=== PATIENT | female | born 1970 | race Caucasian/White ===

== ENCOUNTER → 2017-03-25 | Outpatient (CLI) | payer BC ==
[2014-02-13 11:13] VITALS: BP 129/85
--- NOTE | 2017-03-27 14:48 | RAD ---
HISTORY: Bilateral knee pain. Study: Three views each of the bilateral knees. Comparison: None. Findings: No evidence for acute cortical disruption or dislocation. Mild bilateral patellofemoral spurring and medial joint space narrowing. No significant effusion. IMPRESSION: Chronic findings as above. Reported By:
--- NOTE | 2017-03-27 14:51 | RAD ---
HISTORY: Low back pain. Study: 5 views of the lumbar spine. Comparison: None. Findings: 5 non-rib bearing lumbar vertebra. No acute fracture or listhesis. Mild dextro curvature of the lum bar spine, which may represent positioning versus muscle spasm. There is sacralization of the bilater al L5 transverse processes with associated pseudoarticulation and sclerosis. Otherwise, the vertebral body heights and disc spaces are normal. The SI joints are normal. The soft tissue are unremarkable. IMPRESSION: Chronic findings as above. Reported By:
== END | disposition home or self-care (01) ==
LOC: RAD 15:22
PROVIDERS: ATTEND Obstetrics & Gynecology Obstetrics
DX: M25.561 Pain in right knee (principal); M25.562 Pain in left knee; M54.5 Low back pain; M76.892 Other specified enthesopathies of left lower limb, excluding foot; M76.891 Other specified enthesopathies of right lower limb, excluding foot
CPT/HCPCS: 72110; 73560

== ENCOUNTER → 2017-09-15 | Outpatient (CLI) | payer OTHER ==
[2014-02-13 11:13] VITALS: BP 129/85
--- NOTE | 2017-09-19 08:46 | MG ---
Examination: Bilateral screening mammogram. Clinical history: Routine screening. Technique: Digital CC and MLO views of both breasts were obtained. Computer aided detection analysis was performed and used during the interpretation. Comparison: 03/11/2016. Findings: The breasts are heterogeneously dense, reducing the sensitivity of mammography. No suspicious mass, area of architectural distortion or suspicious cluster of microcalcifications is noted. Impression: 1. No mammographic evidence of malignancy. BI-RADS category 1-negative. Recommend routine annual screening mammogram. Diagnostic CAD was utilized and reviewed. * 0 (ZERO) - ASSESSMENT INCOMPLETE; ADDITIONAL IMAGING IS NEEDED. * 0C - ASSESSMENT INCOMPLETE, NEEDS ADDITIONAL IMAGING EVALUATION AND/OR PRIOR MAMMOGRAMS FOR COMPARI SON. * 1/1 (ONE) - NEGATIVE. * 2/II (TWO) - BENIGN FINDINGS. * 3/III (THREE) - PROBABLY BENIGN FINDING; SHORT INTERVAL FOLLOW-UP SUGGESTED. * 4/IV (FOUR) - SUSPICIOUS ABNORMALITY; BIOPSY SHOULD BE CONSIDERED. * 5/V - HIGHLY SUSPICIOUS OF MALIGNANCY; BIOPSY SHOULD BE PERFORMED. * 6/IV - KNOWN BIOPSY PROVEN MALIGNANCY-APPROPRIATE ACTION SHOULD BE TAKEN. A NEGATIVE X-RAY REPORT SHOULD NOT DELAY BIOPSY IF A DOMINANT OR CLINICALLY SUSPICIOUS MASS IS PRESENT; 4 TO 8 PERCENT OF CANCERS ARE NOT IDENTIFIED BY X-RAY. A NEGATIVE REPORT MAY REINFORCE THE CLINICAL IMPRESSION. ADENOSIS AND DENSE BREASTS MAY OBSCURE AN UNDERLYING NEOPLASM. Reported By:
== END ==
LOC: RAD 09:33
PROVIDERS: ATTEND Internal Medicine
DX: Z12.31 Encounter for screening mammogram for malignant neoplasm of breast (principal)
CPT/HCPCS: 77067